=== PATIENT | male | born 1980 | race Caucasian/White ===

== ENCOUNTER 2024-06-28 15:01 | Emergency (ER) | payer MEDICAID ==
[~2024-06-28] VITALS: Ht 177.8 cm; Wt 74.8 kg
[2024-06-28 16:11] VITALS: BP 110/73; O2SAT 99
== END 2024-06-28 16:13 | disposition left against medical advice (07) ==
LOC: ER 15:05
DX: H92.09 Otalgia, unspecified ear (principal); Z53.21 Procedure and treatment not carried out due to patient leaving prior to being seen by health care provider
CPT/HCPCS: A4606; A4663